=== PATIENT | male | born 1940 | race Caucasian/White ===

== ENCOUNTER 2017-02-10 21:02 | Emergency (ER) | payer OTHER ==
--- NOTE | 2017-02-10 21:33 | EDPHY ---
HPI/HX/ROS/PE/MDM Narrative: CHIEF COMPLAINT: High blood pressure HPI: The patient is a 76-year-old male with a history of hypertension as well as coronary artery disease with CABG and stents. He is visiting from [place] and drove up to [place] today. The patient complains of difficulty to control his blood pressure over the last few weeks with several adjustments made to his Coreg. Today he noted an episode in which his blood pressure cuff red approximately 220 systolic. He contacted his doctor told him to lay down for an hour and retake it. He remained quite high so his doctor recommended he present to the emergency department. The patient denies any symptoms whatsoever. He denies headache, chest pain, shortness of breath or lack of energy. REVIEW OF SYSTEMS: Aside from elements discussed in the HPI, a comprehensive 10-point review of systems was reviewed and is negative. PMH: Hypertension, coronary disease, CABG, stents. SOCIAL HISTORY: . Lives in [place]. Retired. PHYSICAL EXAM: General:Patient is alert, in no acute distress. ENT:Eyes are normal to inspection. ENT inspection normal. Neck: Normal inspection. Full range of motion. Respiratory:No respiratory distress. Breath sounds normal bilaterally. Cardiovascular: Regular rate and rhythm. Strong peripheral pulses. Normal cap refill. Abdomen:The abdomen is nontender to palpation. There are no peritoneal signs. There are normal bowel sounds. Back: Normal to inspection. No tenderness to palpation. Skin: Normal color. No rash. Warm and dry. Extremities: Normal appearance. Full range of motion. Neuro: Oriented x3. Normal motor function. Normal sensory function. MDM: This patient presents with report of extremely high systolic blood pressure prior to arrival. Triaged here in the emergency department, his blood pressure is near normal. It is unclear whether the patient truly had a very high spike of his hypertension and prior to arrival or whether this represented an erroneous reading. I recommended we perform multiple blood tests, EKG in order to ensure no evidence of end-organ damage, but patient declines. Given that his blood pressure is currently normal, I do not think additional antihypertensive medication is indicated. I did explain to the patient and his that his blood pressure may spike again and recommended that he take the measurement with 2 separate coughs to ensure the accuracy. They promise to return if his blood pressure should worsen again. I currently see no signs of stroke, hypertensive emergency or acute coronary syndrome. General Time Seen by Provider: 02/10/17 21:18 Initial Vital Signs: Initial Vital Signs Temperature (C) 36.4 C 02/10/17 21:09 Heart Rate 65 02/10/17 21:09 Respiratory Rate 18 02/10/17 21:09 Blood Pressure 146/86 H 02/10/17 21:09 O2 Sat (%) 92 02/10/17 21:09 O2 Delivery Mode Room Air Allergies/Adverse Reactions: Penicillins Allergy (Verified 02/10/17 21:09) Home Medications: Medication Instructions Recorded Aspirin 02/10/17 Atorvastatin Calcium 02/10/17 Benicar 02/10/17 Carvedilol 02/10/17 Omeprazole 02/10/17 Zetia 02/10/17 Departure - Departure Disposition: Home, Routine, Self-Care Clinical Impression: Hypertension Condition: Good Instructions: Hypertension (ED) Additional Instructions: Return to the ED for blood pressure reading confirmed over 200, or chest pain, shortness of breath, headache or other concerns. Referrals: ANGELA MCINTYRE [Other] - As per Instructions
[2017-02-10 21:46] VITALS: BP 168/87; PULSE 61; RESP 16; TEMP 97.9; O2SAT 93
== END 2017-02-10 21:45 | disposition home or self-care (01) ==
DX: I10 Essential (primary) hypertension (principal); I25.810 Atherosclerosis of coronary artery bypass graft(s) without angina pectoris; Z79.82 Long term (current) use of aspirin; Z95.5 Presence of coronary angioplasty implant and graft

== ENCOUNTER 2017-02-12 08:09 | Emergency (ER) | payer OTHER ==
[2017-02-12 08:15] VITALS: TEMP 98.2
--- NOTE | 2017-02-12 08:49 | CPEKG ---
Heart Rate: 54 RR Interval: 1111 P-R Interval: 160 QRSD Interval: 144 QT Interval: 456 QTC Interval: 433 P [place]: 5 QRS [place]: -1 T Wave [place]: 41 EKG Severity - ABNORMAL ECG - EKG Impression: POSSIBLE ATRIAL ARRHYTHMIA, A-RATE 106 EKG Impression: RIGHT BUNDLE BRANCH BLOCK Electronically Signed By: Briana Villasenor 12-Feb-2017 15:34:09
--- NOTE | 2017-02-12 09:31 | EDPHY ---
H & P Time Seen by Provider: 02/12/17 08:29 HPI/ROS: HPI Concerned about high blood pressure. 76-year-old male by private vehicle with his . They are visiting from [place]. They flew here on Thursday. He has a history of coronary artery disease as well as hypertension. He is on Coreg. He reports that he spent some time in [place] on Thursday and did not feel well. He describes this is low on energy. He had elevation of his blood pressure all day on Thursday. He was seen in our emergency department for this on Thursday. He was otherwise asymptomatic. He was discharged from the emergency department without significant testing. He has a wedding event to go to in [place]. [place] family event. He states that his blood pressure was high again this morning. He again denies any associated complaints. No chest pain, no headache, no confusion, no shortness of breath. He has been urinating without issue. He reports that his blood pressure this morning was 220/90 this morning. ROS: Constitutional: No fever, no chills. No weakness. Eyes: No discharge. No changes in vision. ENT: No sore throat. No nasal congestion or rhinorrhea. Respiratory: No cough. No shortness of breath. Cardiac: No chest pain, no palpitations. Gastrointestinal: No abdominal pain, no vomiting, no diarrhea. Genitourinary: No hematuria. No dysuria or increased frequency with urination. Musculoskeletal: No back pain. No neck pain. No myalgias or arthralgias. Skin: No rashes. Neurological: No headache. No focal weakness or altered sensation. Past medical history: Coronary artery disease, CABG in 2002, 2 stents placed in 2006, hypertension, hyperlipidemia and GERD. Primary care is in [place]. Social history: Here with his . Nonsmoker. Drinks alcohol socially. Physical Exam: General Appearance: Alert, no distress. This patient is responding to questions appropriately and in full sentences. This patient appears well- hydrated and well-nourished. Eyes: Pupils equal and round no pallor or injection. No lid edema, erythema or injection. Respiratory: There are no retractions, lungs are clear to auscultation with good air movement bilaterally. Cardiovascular: Regular rate and rhythm. No murmur. Gastrointestinal: Abdomen is soft and nontender, no masses, bowel sounds normal. No focal tenderness at McBurney's point. No Myrick sign. Neurological: Motor sensory function is grossly intact. Cranial nerves are normal. Gait is normal. Skin: Warm and dry, no rashes. Musculoskeletal: Neck is supple and nontender. Extremities are symmetrical. All joints range without pain or impingement. Psychiatric: No agitation. No depression. Database: EKG: EKG time is 8:47 a.m.: EKG shows a sinus rhythm with a ventricular rate of 54. There is an underlying right bundle branch block. No ST, T-wave changes indicative of ischemic or injury pattern. EKG is otherwise unremarkable. Interpreted by me. Imaging: Procedures: Emergency department course: On my evaluation, the patient's blood pressure is 176/85. He is asymptomatic. Blood pressure in triage was 183/81. He has been asymptomatic. At this time I do not feel the patient requires emergent management of his hypertension. I have advised that he stay in [place] and that he limit his time in [place] and that he does not spend over nights in the mountains. He and his endorse this plan. He will speak with his primary care physician later today about increasing the dose of his Coreg. He feels comfortable being discharged from the emergency department. Return to emergency department precautions were thoroughly reviewed with him and his . All of their questions were answered. He was discharged in good condition. Differential Diagnosis: The differential diagnosis on this patient includes but is not limited to uncontrolled hypertension, acute mountain sickness. High altitude pulmonary edema, high altitude cerebral edema, hypertensive emergency, acute coronary syndrome unlikely. This represents a partial list of diagnoses considered. These considerations are based on history, physical exam, past history, reassessment and diagnostic testing. Smoking Status: Former smoker Constitutional: Initial Vital Signs Temperature (C) 36.8 C 02/12/17 08:13 Heart Rate 66 02/12/17 08:13 Respiratory Rate 17 02/12/17 08:13 Blood Pressure 183/81 H 02/12/17 08:13 O2 Sat (%) 95 02/12/17 08:13 O2 Delivery Mode Room Air Allergies/Adverse Reactions: Penicillins Allergy (Verified 02/12/17 08:13) Home Medications: Medication Instructions Recorded Aspirin 02/10/17 Atorvastatin Calcium 02/10/17 Benicar 02/10/17 Carvedilol 02/10/17 Omeprazole 02/10/17 Zetia 02/10/17 Departure - Departure Disposition: Home, Routine, Self-Care Clinical Impression: Uncontrolled hypertension Condition: Good Instructions: Hypertension (ED) Additional Instructions: Read and follow provided instructions. Follow-up with your primary care physician when you return home to [place] to discuss ongoing management of your high blood pressure. As discussed, stay in [place], avoid going to high altitude for prolonged periods of time and sleeping at high altitude. Avoid any strenuous activity. Keep yourself well hydrated. Take your medication as prescribed. Return to the emergency department for chest pain, shortness of breath, confusion, nausea and vomiting or other serious concerns. Referrals: TURNER MCINTYRE [Other] - As per Instructions
[2017-02-12 10:07] VITALS: BP 186/88; PULSE 62; RESP 17; O2SAT 95
== END 2017-02-12 10:07 | disposition home or self-care (01) ==
DX: I10 Essential (primary) hypertension (principal); I25.810 Atherosclerosis of coronary artery bypass graft(s) without angina pectoris; Z79.82 Long term (current) use of aspirin; Z87.891 Personal history of nicotine dependence; Z95.5 Presence of coronary angioplasty implant and graft